=== PATIENT | male | born 1985 | race Hispanic/Latino ===

== ENCOUNTER → 2018-03-31 | Day surgery (SDC) | payer OTHER ==
[~2018-03-31] MED LIST: ACETAMINOPHEN/CODEINE 300MG - 30MG TAB ONE; BACITRACIN 50,000 UNIT VIAL ONE; BUPIVACAINE 0.25% 30ML SDV INJ ONE; CEFAZOLIN SOD 2 GM/D5W 50ML 50 ML IV ONE; DEXAMETHASONE SOD PHOS 10 MG/1 ML VIAL ONE; DEXAMETHASONE SOD PHOS INJ 4 MG/ML VIAL ONE; EPINEPHRINE HCL 1:1000 1ML 1 MG/ML AMP ONE; FENTANYL CITRATE/PF 100MCG/2 ML INJ ONE; LIDOCAINE 2%/ EPINEPHRINE 20ML MDV ONE; LIDOCAINE HCL 2% LOCAL INJ 5 ML SDV VIAL INJ ONE; MIDAZOLAM HCL 2 MG/2 ML VIAL ONE; ONDANSETRON HCL INJ 2MG/ML 2ML 2 MG/ML VIAL ONE; PROPOFOL IV EMULSION 10 MG/ML 20 ML VIAL ONE; ROPIVACAINE 0.5% 5 MG/ML 30 ML SDV ONE; SEVOFLURANE INHAL SOLN 250 ML PEN BTL ONE; TYLENOL WITH C1 EACH PO; ULTRAM50 MG PO
[2018-03-31 13:35] VITALS: BP 136/96
--- NOTE | 2018-04-01 17:38 | Operative Report ---
DATE OF PROCEDURE: March 31, 2018 PREOPERATIVE DIAGNOSIS: Right radial shaft fracture. POSTOPERATIVE DIAGNOSIS: Right radial shaft fracture. OPERATION/PROCEDURE PERFORMED: The patient underwent an open reduction internal fixation of the right radial shaft fracture. FIELD SERVICE TECHNICIAN POULTRY: Erna Diaz ANESTHESIA: General endotracheal intubation anesthesia. IV FLUIDS: Per the anesthesia record. BRIEF DESCRIPTION OF THE PATIENT'S OPERATIVE PROCEDURE: Mr. Light was taken to the operating room and placed in the supine position on the operating table. Following induction of general anesthesia, as well as endotracheal intubation, the patient's right upper extremity was examined under anesthesia. He was found to have several small abrasions overlying the lateral and volar surface of his forearm. The forearm was swollen, but there were no other gross deformities to the upper extremity. Fluoroscopic evaluation of the forearm demonstrated a displaced fracture of the radius at the junction of the middle and proximal thirds of the radius. The patient's upper extremity was prepped and draped in the standard surgical fashion. A standard volar approach to the forearm was performed. An incision was created centered over the patient's fracture site, and this incision was carried through the skin only. Blunt dissection was used to deepen the incision to the level of the forearm muscles and fascia. The fascia was divided and the brachioradialis muscle was identified. The brachioradialis muscle was mobilized in a radial fashion. Care was taken to identify the superficial radial nerve and protect it throughout the remainder of the case. In the distal incision, the radius was easily accessible. As the dissection was carried proximally, the pronator teres muscle was identified. The arm was placed in slight pronation and the pronator was elevated from its insertion site into the radius. The dissection was carried further proximally with the arm in supination, and the most distal edge of the supinator was elevated from the radius fully exposing the patient's fracture site. The fracture site was cleaned thoroughly. The forearm injury was reduced and a 6-hole DCP plate was contoured to the bow of the radius in this region. The plate was then affixed to the radius with combinations of cortical and locking screws. This resulted in compression across the patient's fracture site and anatomic reduction of the patient's injury. This was confirmed using fluoroscopy in both AP and lateral plane. The wound was copiously irrigated. The wrist and elbow were evaluated for instability and none was found to be present. The patient had full supination and pronation of the forearm without mechanical hindrance at the time of surgery. The wound was closed in a multilayer fashion. The patient was provided a sugar-tong splint, awakened and taken to the postanesthesia care in stable condition. Erna Diaz acted as the reference assistant for this case, and was necessary for both prepping and draping the patient, as well as the retraction of soft tissue and closure of the wounds to allow this case to be successful. Job#: [id number] [facility]
== END | disposition home or self-care (01) ==
LOC: OR 06:59
PROVIDERS: ATTEND Specialist
DX: S52.301A Unspecified fracture of shaft of right radius, initial encounter for closed fracture (principal); W20.8XXA Other cause of strike by thrown, projected or falling object, initial encounter; Y93.89 Activity, other specified; Y92.89 Other specified places as the place of occurrence of the external cause; Y99.0 Civilian activity done for income or pay
CPT/HCPCS: 25515; 76000; C1713 ×2; J0171; J0690; J1100 ×2; J2001 ×2; J2250; J2405; J2704; J2795